=== PATIENT | male | born 1975 | race Caucasian/White ===

== ENCOUNTER 2023-11-19 01:38 | Emergency (ER) | payer BC, OTHER ==
[2023-11-19] MEDS ORDERED: Proparacaine 0.5% Opth 15 ML BOT ONE (01:51)
[2023-11-19] MEDS ORDERED: Fluorescein Opthalmic Strip ONE (01:51)
[2023-11-19] MEDS ORDERED: Erythromycin Base 0.5% Oint 1 GM TUBE ONE (02:15)
== END 2023-11-19 02:17 | disposition home or self-care (01) ==
LOC: ERS 01:38
DX: H16.132 Photokeratitis, left eye (principal)
CPT/HCPCS: 99283